=== PATIENT | male | born 2000 | race Caucasian/White ===

== ENCOUNTER 2024-07-26 05:17 | Emergency (ER) | payer OTHER, SELFPAY ==
[2024-07-26 05:22] VITALS: BP 136/86; PULSE 58; RESP 16; TEMP 36.2; O2SAT 99; BMI 18.3
[2024-07-26] MEDS: IBUPROFEN 400 MG TABLET 800 MG PO (05:36)
--- NOTE | 2024-07-26 06:03 | ED_ITS ---
HPI - General Adult General Chief complaint: Ear Stated complaint: left ear infection Time Seen by Provider: 07/26/24 05:23 Source: patient Mode of arrival: Ambulatory History of Present Illness HPI narrative: Otherwise healthy 23-year-old male here for evaluation of left-sided ear pain. Patient states the symptoms started approximately 3 hours ago. Has not tried anything the symptoms. No drainage. No sinus congestion. No sore throat. No fevers. No headache. No dental pain. No runny nose. No trauma. Review of Systems Review of Systems Narrative: See HPI Patient History Social History Smoking Status: Never smoker Smoking Status: Never smoker alcohol intake frequency: holidays/special occasions only Substance Use Type: marijuana Exam Initial Vital Signs Initial Vital Signs: Vital Signs Temperature 97.2 F L 07/26/24 05:22 Pulse Rate 58 L 07/26/24 05:22 Respiratory Rate 16 07/26/24 05:22 Blood Pressure 136/86 07/26/24 05:22 Pulse Oximetry 99 07/26/24 05:22 Oxygen Delivery Method Room Air 07/26/24 05:22 HENMT Ears: TM normal on the right, EAC's normal, mastoids normal and TM abnormal bulg ing on the left, wth effusion serous on the left and with fluid behind the TM on the left; not dull and not erythematous Mouth: oral mucosae normal, lip normal and tongue normal Teeth and gingiva: dentition normal HENMT Other: No mastoid tenderness. Neck Other: Several left-sided some mandibular less than 1 cm lymphadenopathy Skin General: no rashes or lesions noted Course Orders Ordered: Discontinued Medications Ibuprofen (Ibuprofen 400 Mg Tablet) 800 mg PO NOW ONE Stop: 07/26/24 05:30 Last Admin: 07/26/24 05:36 Dose: 800 mg Documented By: FRANKI Vital Signs Vital signs: Vital Signs - 8 hr 07/26/24 05:22 Temperature 97.2 F L Pulse Rate 58 L Respiratory Rate 16 Blood Pressure 136/86 Pulse Oximetry 99 Oxygen Delivery Method Room Air Medical Decision Making [facility] Narrative Medical decision making narrative: The left tympanic membrane is somewhat partially obscured by cerumen however the portion that is visualized shows no erythema. It does appear to have some fluid behind the membrane which is consistent with his discomfort. He does have left- sided submandibular lymphadenopathy. No indication for antibiotics. We discussed decongestants and treatment for his symptoms. Will discharge instructions he was given return precautions. He expressed understanding and agreement Discharge Plan Departure Patient Disposition: Home Clinical Impression: Otitis media Instructions: DI for Ear Pain-Adult Activity Restrictions/Additional Instructions: You can take Tylenol and or ibuprofen for discomfort. I also recommend that you take a antihistamine such as Claritin or Zyrtec. You can purchase these [id number]. That would not be surprised if you develop a sore throat or sinus congestion over the next couple days. If this happens continue to treat symptomatically. Return to the emergency department for new symptoms. Stand Alone Forms: Patient Portal/API/Survey
== END 2024-07-26 05:37 | disposition home or self-care (01) ==
PROVIDERS: Emergency Provider Emergency Medicine; Family Provider Emergency Medicine
DX: H66.92 Otitis media, unspecified, left ear (principal)
CPT/HCPCS: 99282; 99283